=== PATIENT | female | born 1990 | race Caucasian/White ===

== ENCOUNTER → 2023-04-14 | Emergency (ER) | payer OTHER ==
[~2023-04-14] VITALS: Ht 152.4 cm; Wt 73.0 kg
[~2023-04-14] MED LIST: ATABEX PRENATAL1 TAB; NASONEX17 GM NS; PRENATAL1 TAB
== END | disposition home or self-care (01) ==
LOC: ER 23:21
DX: K52.9 Noninfective gastroenteritis and colitis, unspecified (principal)